=== PATIENT | female | born 1965 | race Caucasian/White ===

== ENCOUNTER → 2019-09-02 13:15 | Outpatient (BNVA) | payer MEDICARE, SELFPAY | PROVIDERS: Family Provider Internal Medicine; PCP Internal Medicine; Visit Provider Specialist | DX: G35 Multiple sclerosis (principal); I10 Essential (primary) hypertension; F17.210 Nicotine dependence, cigarettes, uncomplicated | CPT/HCPCS: 99215 ==

== ENCOUNTER 2019-09-02 17:13 | Emergency (ER) | payer MEDICARE, SELFPAY ==
[2019-09-02 17:26] VITALS: BP 207/126; PULSE 84; RESP 16; TEMP 36.3; O2SAT 98; BMI 27.6
[2019-09-02 18:27] LABS: Basophils % 0.9 %; Eosinophils # 0.2 10^3/uL (0.0-0.8); Eosinophils % 7.1 %; Hematocrit 40.7 % (37.0-47.0); Lymphocytes # 1.1 10^3/uL (0.8-4.8); Lymphocytes % 33.6 %; Mean Corpuscular HGB Conc 31.9 g/dL (30.0-36.0); Mean Corpuscular Hemoglobin 27.7 pg (28.0-34.0); Mean Corpuscular Volume 86.6 fL (81-99); Mean Platelet Volume 11.4 fL (7.4-10.4); Monocytes # 0.4 10^3/uL (0.2-0.9); Monocytes % 10.6 %; Neutrophils # 1.6 10^3/uL (1.8-7.7); Neutrophils % 47.5 %; Nucleated Red Blood Cells % 0 %; Platelet Count 161 10^3/cmm (130-400); Red Cell Distribution Width 14.6 % (12.1-15.1); White Blood Count 3.4 10^3/uL (4.0-10.0)
[2019-09-02 18:43] LABS: Alanine Aminotransferase 25 U/L (0-33); Albumin Level 4.4 g/dL (3.5-5.2); Alkaline Phosphatase 118 IU/L (35-105); Anion Gap 14.8 (5-19); Aspartate Amino Transferase 25 U/L (0-32); Blood Urea Nitrogen 10 mg/dL (6-20); Calcium 10.5 mg/dL (8.5-10.5); Carbon Dioxide 28 mmol/L (22-29); Chloride 102 mmol/L (98-107); Glomerular Filtration Rate 87.9 mL/min (90-130); Potassium 3.8 mmol/L (3.5-5.1); Sodium 141 mmol/L (136-145); Total Bilirubin 0.4 mg/dL (0.15-1.2); Total Protein 7.4 g/dL (6.6-8.7)
[2019-09-03 09:05] LABS: Glucose 83 mg/dL (65-115)
== END 2019-09-02 20:16 | disposition left against medical advice (07) ==
PROVIDERS: Emergency Medicine; Emergency Provider Emergency Medicine; Family Provider Internal Medicine; PCP Internal Medicine
DX: I10 Essential (primary) hypertension (principal); F17.200 Nicotine dependence, unspecified, uncomplicated; Z53.21 Procedure and treatment not carried out due to patient leaving prior to being seen by health care provider
CPT/HCPCS: 36415; 80053; 85025; 99281; 99282

== ENCOUNTER → 2020-03-29 10:44 | Outpatient (BNVA) | payer MEDICARE, SELFPAY | PROVIDERS: Family Provider Internal Medicine; PCP Internal Medicine; Visit Provider Specialist | DX: G35 Multiple sclerosis (principal); F17.210 Nicotine dependence, cigarettes, uncomplicated | CPT/HCPCS: 99213 ==

== ENCOUNTER → 2021-03-29 10:11 | Outpatient (BNVA) | payer MEDICARE, SELFPAY | PROVIDERS: Family Provider Internal Medicine; PCP Internal Medicine; Visit Provider Specialist | DX: G35 Multiple sclerosis (principal); F17.210 Nicotine dependence, cigarettes, uncomplicated | CPT/HCPCS: 99213 ==

== ENCOUNTER → 2022-03-20 08:58 | Outpatient (BNVA) | payer MEDICARE, SELFPAY | PROVIDERS: Family Provider Internal Medicine; PCP Internal Medicine; Visit Provider Specialist | DX: G35 Multiple sclerosis (principal); F17.210 Nicotine dependence, cigarettes, uncomplicated | CPT/HCPCS: 99213; 99214 ==

== ENCOUNTER → 2023-03-21 10:14 | Outpatient (BNVA) | payer MEDICARE, SELFPAY | PROVIDERS: Family Provider Internal Medicine; PCP Internal Medicine; Visit Provider Specialist | DX: G35 Multiple sclerosis (principal); R41.89 Other symptoms and signs involving cognitive functions and awareness | CPT/HCPCS: 99214 ==

== ENCOUNTER → 2024-06-06 15:07 | Outpatient (BNVA) | payer MEDICARE, SELFPAY | PROVIDERS: Family Provider Internal Medicine; PCP Internal Medicine; Visit Provider Specialist | DX: G35 Multiple sclerosis (principal); G31.84 Mild cognitive impairment of uncertain or unknown etiology; F17.200 Nicotine dependence, unspecified, uncomplicated | CPT/HCPCS: 99214 ==

== ENCOUNTER → 2025-06-01 11:35 | Outpatient (BNVA) | payer MEDICARE, SELFPAY | PROVIDERS: Family Provider Internal Medicine; PCP Internal Medicine; Visit Provider Specialist | DX: G35.D Multiple sclerosis, unspecified (principal); G31.84 Mild cognitive impairment of uncertain or unknown etiology; R03.0 Elevated blood-pressure reading, without diagnosis of hypertension | CPT/HCPCS: 99214 ==